=== PATIENT | female | born 1945 | race African-American/Black ===

== ENCOUNTER 2018-03-14 16:04 | Inpatient (IN) | payer OTHER ==
[~2018-03-14] VITALS: Ht 160 cm; Wt 75.7 kg
[2018-03-14 19:07] LABS: PLATELET COUNT 267 x10^3mcL (130-400)
[2018-03-14 19:16] LABS: ALBUMIN 3.7 g/dL (3.4-5.0); ALKALINE PHOSPHATASE 101 U/L (46-116); AST/SGOT 15 U/L (15-37); CALCIUM 8.7 mg/dL (8.5-10.1); CARBON DIOXIDE 31.2 mmol/L (21-32); CHLORIDE SERUM 95 mmol/L (98-107); GLUCOSE SERUM 75 mg/dL (74-106); POTASSIUM SERUM 5.3 mmol/L (3.5-5.1); SODIUM SERUM 136 mmol/L (136-145); TOTAL PROTEIN, SERUM 7.6 g/dL (6.4-8.2)
[2018-03-14 19:20] LABS: CREATININE SERUM 9.4 mg/dL (0.6-1.0)
[2018-03-14 19:25] LABS: ALT/SGPT 8 U/L (14-59)
[2018-03-14] MEDS ORDERED: NOR10 PO (21:44)
[2018-03-14] MEDS ORDERED: SENSIPAR30 M1 PO (21:44)
[2018-03-14] MEDS ORDERED: GABAPENTIN100 M2 PO (21:45)
[2018-03-14] MEDS ORDERED: ARICEPT5 MG PO (21:46)
[2018-03-14] MEDS ORDERED: ZYRTEC10 MG PO (21:47)
[2018-03-14] MEDS ORDERED: SINEMET 25-1001 TAB PO ×2 (21:48→21:49)
[2018-03-14] MEDS ORDERED: HYDRALAZINE HCL25 MG PO (21:49)
[2018-03-14] MEDS ORDERED: PHOS PO (21:51)
[2018-03-14 22:13] LABS: CHOLESTEROL/HDL RATIO 2.7; MAGNESIUM 2.2 mg/dL (1.8-2.4); PHOSPHOROUS 6.2 mg/dL (2.5-4.9)
[2018-03-14 22:24] LABS: T3 TOTAL 0.87 ng/mL
[2018-03-14 22:38] VITALS: BP 196/85
[2018-03-14 22:42] VITALS: Ht 160 cm; Wt 75.7 kg
[2018-03-14 22:51] LABS: FREE T4 0.86 ng/dL (0.76-1.46); FREE THYROXINE INDEX 2.2 ug/dL (1.4-4.5); T4(THYROXINE) 6.2 ug/dL (4.7-13.3)
[2018-03-14] MEDS ORDERED: ALLOPURINOL100 MG PO (23:56)
[2018-03-14] MEDS ORDERED: GOOD SENSE OMEP20 MG PO (23:56)
[2018-03-15] VITALS (8 sets, daily range): BP systolic 150–198; BP diastolic 71–90
[2018-03-15 06:55] LABS: BASOPHIL % 0.9 % (0-2); PLATELET COUNT 245 x10^3mcL (130-400)
[2018-03-15 07:01] LABS: CALCIUM 8.3 mg/dL (8.5-10.1); CARBON DIOXIDE 28.5 mmol/L (21-32); CHLORIDE SERUM 97 mmol/L (98-107); GLUCOSE SERUM 63 mg/dL (74-106); PHOSPHOROUS 6.4 mg/dL (2.5-4.9); POTASSIUM SERUM 4.9 mmol/L (3.5-5.1); SODIUM SERUM 136 mmol/L (136-145)
[2018-03-15 07:07] LABS: CREATININE SERUM 10.3 mg/dL (0.6-1.0)
[2018-03-16 05:34] VITALS: BP 185/89
[2018-03-16 06:08] LABS: BASOPHIL % 0.7 % (0-2); PLATELET COUNT 230 x10^3mcL (130-400)
[2018-03-16 06:21] LABS: CALCIUM 8.6 mg/dL (8.5-10.1); CHLORIDE SERUM 97 mmol/L (98-107); GLUCOSE SERUM 62 mg/dL (74-106); MAGNESIUM 2.1 mg/dL (1.8-2.4); PHOSPHOROUS 8.2 mg/dL (2.5-4.9); SODIUM SERUM 137 mmol/L (136-145)
[2018-03-16 06:28] LABS: CREATININE SERUM 11.6 mg/dL (0.6-1.0)
[2018-03-16 06:52] LABS: RED CELL DISTRIBUTION WIDTH 16.3 % (11.5-14.5)
[2018-03-16 09:31] VITALS: BP 174/83
[2018-03-16 12:50] VITALS: BP 110/55
[2018-03-16 17:38] VITALS: BP 116/60
[2018-03-16 21:17] VITALS: BP 170/74
[2018-03-17 05:55] VITALS: BP 174/81
[2018-03-17 06:35] VITALS: BP 157/73
[2018-03-17 07:23] LABS: CARBON DIOXIDE 27.4 mmol/L (21-32); CHLORIDE SERUM 99 mmol/L (98-107); GLUCOSE SERUM 75 mg/dL (74-106); PHOSPHOROUS 7.4 mg/dL (2.5-4.9); POTASSIUM SERUM 4.7 mmol/L (3.5-5.1); SODIUM SERUM 138 mmol/L (136-145)
[2018-03-17 07:24] LABS: CREATININE SERUM 10.2 mg/dL (0.6-1.0)
[2018-03-17 07:28] LABS: PLATELET COUNT 202 x10^3mcL (130-400)
[2018-03-17 07:34] LABS: BASOPHIL % 0 % (0-2); RED CELL DISTRIBUTION WIDTH 15.4 % (11.5-14.5)
[2018-03-17 10:24] VITALS: BP 124/63
[2018-03-17 13:22] VITALS: BP 123/68
[2018-03-17 16:31] VITALS: BP 148/62
[2018-03-17 21:55] VITALS: BP 152/70
[2018-03-18 05:29] VITALS: BP 148/70
[2018-03-18 06:12] LABS: CALCIUM 9.1 mg/dL (8.5-10.1); CARBON DIOXIDE 29.1 mmol/L (21-32); CHLORIDE SERUM 101 mmol/L (98-107); GLUCOSE SERUM 91 mg/dL (74-106); MAGNESIUM 1.9 mg/dL (1.8-2.4); PHOSPHOROUS 6.2 mg/dL (2.5-4.9); POTASSIUM SERUM 4.3 mmol/L (3.5-5.1); SODIUM SERUM 137 mmol/L (136-145)
[2018-03-18 06:44] LABS: BASOPHIL % 0.7 % (0-2); PLATELET COUNT 185 x10^3mcL (130-400); RED CELL DISTRIBUTION WIDTH 17.4 % (11.5-14.5)
[2018-03-18 07:04] LABS: CREATININE SERUM 8.5 mg/dL (0.6-1.0)
[2018-03-18 10:15] VITALS: BP 158/80
[2018-03-18 13:19] VITALS: BP 154/80
[2018-03-18 13:38] VITALS: BP 154/86
[2018-03-18] MEDS ORDERED: LEVOFLOXACIN500 M1 PO (13:58)
[2018-03-18] MEDS ORDERED: FLA500 PO (13:59)
== END 2018-03-18 15:30 | disposition home or self-care (01) | DRG 391 ==
LOC: ED 16:04 → MU 21:27 → DU 21:27
PROVIDERS: General Practice; Internal Medicine; Specialist
DX: K57.32 Diverticulitis of large intestine without perforation or abscess without bleeding (principal); N18.6 End stage renal disease; I12.0 Hypertensive chronic kidney disease with stage 5 chronic kidney disease or end stage renal disease; N25.81 Secondary hyperparathyroidism of renal origin; E87.5 Hyperkalemia; E83.39 Other disorders of phosphorus metabolism; I16.0 Hypertensive urgency; G20 Parkinson's disease; E21.3 Hyperparathyroidism, unspecified; Z99.2 Dependence on renal dialysis; Z88.5 Allergy status to narcotic agent; Z88.8 Allergy status to other drugs, medicaments and biological substances; Z90.710 Acquired absence of both cervix and uterus; Z79.899 Other long term (current) drug therapy; Z68.24 Body mass index [BMI] 24.0-24.9, adult
CPT/HCPCS: 82962; 84439; 97116-GP; J0360; J1644; J1956; J2405; J2543; J3490; J7030; J7050; Q0092